=== PATIENT | female | born 1955 | race Caucasian/White ===

== ENCOUNTER 2021-02-26 15:42 | Outpatient (REF) | payer BC, SELFPAY ==
[2021-02-26 21:07] LABS: Calculated LDL 110 mg/dL (<100); Cholesterol 219 mg/dL (<200); Glucose 94 mg/dL (74-106); HDL Cholesterol 100 mg/dL (40-60); Triglyceride 48 mg/dL (<150)
== END 2021-02-26 15:43 | disposition home or self-care (01) ==
LOC: NCHCN 15:42
PROVIDERS: PCP Family Medicine; Visit Provider Nurse Practitioner Family
DX: Z00.00 Encounter for general adult medical examination without abnormal findings (principal); F32.9 Major depressive disorder, single episode, unspecified; G43.909 Migraine, unspecified, not intractable, without status migrainosus
CPT/HCPCS: 80061; 82947

== ENCOUNTER 2022-05-19 17:05 | Outpatient (REF) | payer BC, SELFPAY ==
[2022-05-19 21:11] LABS: HCT 36.5 % (36.0-46.0); HGB 12.5 g/dL (11.2-15.7); MCHC 34.2 % (32.0-36.0); MCV 93 fL (80-95); MPV 10.2 fL (8.0-11.0); Platelet Count 245 10^3/uL (130-400); RBC 3.91 10^6/uL (3.93-5.22); RDW 11.9 % (11.7-14.6); RDW-SD 41.1 fL; WBC 5.06 10^3/uL (4.4-10.8)
[2022-05-19 21:33] LABS: ALT 28 U/L (14-59); AST 28 U/L (15-37); Albumin 4.2 g/dL (3.4-5.0); Alkaline Phosphatase 72 U/L (46-116); Anion Gap 8.1 mmol/L (3-11); BUN 12 mg/dL (7-18); Bilirubin, Total 0.5 mg/dL (0.2-1.0); CO2 28.9 mmol/L (21.0-32.0); CREATININE 0.6 mg/dL (0.55-1.02); Calcium 9.3 mg/dL (8.5-10.1); Chloride 97 mmol/L (98-107); Estimated GFR 100.17 (mL/min/1.73m2); Glucose 93 mg/dL (74-106); Potassium 3.8 mmol/L (3.5-5.1); Sodium 134 mmol/L (136-145)
[2022-05-19 21:54] LABS: Calculated LDL 78 mg/dL (<100); Cholesterol 178 mg/dL (<200); HDL Cholesterol 95 mg/dL (40-60); Triglyceride 29 mg/dL (<150)
== END 2022-05-19 17:06 | disposition home or self-care (01) ==
LOC: NCHCN 17:05
PROVIDERS: PCP Family Medicine; Visit Provider Nurse Practitioner Family
DX: F41.8 Other specified anxiety disorders (principal); G43.909 Migraine, unspecified, not intractable, without status migrainosus; L82.1 Other seborrheic keratosis; L57.0 Actinic keratosis
CPT/HCPCS: 80053; 80061; 85027